=== PATIENT | male | born 1995 | race African-American/Black ===

== ENCOUNTER 2019-02-07 22:53 | Emergency (ER) | payer SELFPAY ==
[~2019-02-07] VITALS: Ht 165.1 cm; Wt 79.5 kg
[2019-02-07 23:01] VITALS: BP 136/76; TEMP 98.9
[2019-02-08] MEDS ORDERED: CEPHALEXIN500 M1 PO (03:16)
[2019-02-08 04:10] VITALS: PULSE 74
== END 2019-02-08 04:10 | disposition home or self-care (01) ==
LOC: COL.ER 22:53
DX: S61.011A Laceration without foreign body of right thumb without damage to nail, initial encounter (principal); Z23 Encounter for immunization; X99.1XXA Assault by knife, initial encounter; Y92.000 Kitchen of unspecified non-institutional (private) residence as the place of occurrence of the external cause